=== PATIENT | male | born 1990 | race Caucasian/White ===

== ENCOUNTER 2019-12-16 12:01 | Inpatient (IN) | payer MEDICAID, OTHER ==
[2019-12-16] VITALS (9 sets, daily range): BP systolic 105–128; BP diastolic 62–86
[~2019-12-16] VITALS: Ht 182.9 cm; Wt 77.1 kg
[2019-12-16] MEDS ORDERED: ONDANSETRON 4 MG/2 ML VIAL ONE (12:14)
[2019-12-16] MEDS ORDERED: NALOXONE HCL 0.4 MG/ML AMPUL IV ONE (12:15)
[2019-12-16] MEDS ORDERED: NALOXONE HCL 0.4 MG/ML AMPUL IM ONE (12:15)
[2019-12-16] MEDS ORDERED: ONDANSETRON 4 MG/2 ML VIAL IV ONE (12:15)
--- NOTE | 2019-12-16 12:16 | NUR ---
PT IS IN ROOM #1A. DR NARAYANNA EVALUATED THE PT. PT OVERDOSED WITH FENTANYL , NONRESPONSIVE, IN RESPIRATORY DISTRESS. DR NARAYANAN CALLED CODE BLUE AND PREPARE PT FOR INTUBATION. AFTER ADMINISTERING NARCAN PT WOKE UP AND STARTED BREATHING ON HIS OWN , FULLY AWAKE AND MOVES WITH ALL FOUR EXTREMITIES WITHOUT LIMITATIONS.
--- NOTE | 2019-12-16 12:23 | NUR ---
[facility] CANCELED BY DR NARAYANAN.
[2019-12-16 12:29] LABS: BASOPHILS # (AUTO) 0.1 K/uL (0.0-8.0); BASOPHILS % (AUTO) 0.5 % (0.0-2.0); EOSINOPHILS % (AUTO) 0.4 % (0.0-7.0); HEMATOCRIT 45.6 % (36.7-47.1); HEMOGLOBIN 15.1 g/dL (12.5-16.3); LYMPHOCYTES # (AUTO) 2.1 K/uL (20.0-40.0); LYMPHOCYTES % (AUTO) 15.7 % (20.5-51.5); MEAN CORPUSCULAR HEMOGLOBIN 29.1 uug (23.8-33.4); MEAN CORPUSCULAR HGB CONC 33 g/dL (32.5-36.3); MEAN CORPUSCULAR VOLUME 88.1 fL (73.0-96.2); MONOCYTES # (AUTO) 1.6 K/uL (2.0-10.0); MONOCYTES % (AUTO) 11.4 % (0.0-11.0); NEUTROPHILS # (AUTO) 9.8 K/uL (1.8-8.9); PLATELET COUNT (AUTO) 276 K/uL (152-348); RED BLOOD CELL COUNT(AUTO) 5.18 MIL/uL (4.06-5.63); WHITE BLOOD COUNT (AUTO) 13.6 K/uL (3.6-10.2)
[2019-12-16] MEDS ORDERED: TRAZ-257 PO (12:29)
[2019-12-16] MEDS ORDERED: LISI1TAB32 PO (12:29)
[2019-12-16] MEDS ORDERED: PRAZ5CAP2 PO (12:29)
[2019-12-16] MEDS ORDERED: GABA600T12 PO (12:29)
[2019-12-16] MEDS ORDERED: MULT1CAP44 PO (12:29)
[2019-12-16] MEDS ORDERED: HYDR-501 PO (12:29)
[2019-12-16] MEDS ORDERED: SERT100T PO (12:29)
--- NOTE | 2019-12-16 12:36 | NUR ---
PT IS RESTING IN BED. NO S/S OF ACUTE DISTRESS AT THIS TIME. CONTINUE TO MONITOR THE PT.
[2019-12-16 12:41] LABS: CARBON DIOXIDE 28 mmol/L (21-32); CHLORIDE 91 mmol/L (98-107); GLUCOSE 207 mg/dL (74-106); POTASSIUM 3.4 mmol/L (3.5-5.1); UREA NITROGEN, BLOOD 23 mg/dL (7-18)
[2019-12-16 12:47] LABS: ALANINE AMINOTRANSFERASE 61 U/L (16-63); ALKALINE PHOSPHATASE 74 U/L (50-136); ASPARTATE AMINOTRANSFERASE 73 U/L (15-37); BILIRUBIN,DIRECT 0.4 mg/dL (0.0-0.2); BILIRUBIN,TOTAL 2.3 mg/dL (0.2-1.0); TOTAL PROTEIN, SERUM 7.4 g/dL (6.4-8.2)
[2019-12-16 12:57] LABS: ETHANOL < 3 MG/DL (0-0)
[2019-12-16] MEDS ORDERED: levoFLOXacin 750MG/D5W 150 ML IV ONE (13:12)
[2019-12-16 13:16] LABS: ABG BASE EXCESS -1.2 mmol/L; ABG HCO3 26.1 mmol/L; ABG PCO2 53.1 mmHg (35.0-45.0); ABG PH 7.309 (7.350-7.450); ABG PO2 87.5 mmHg (75.0-100.0); ABG SITE RIGHT RADIAL; COHb 2.6 % (0.5-1.5); MetHb 0.3 % (0.0-1.5); O2Hb 94.1 % (94.0-97.0); VENT MODE Nasal Cannula
[2019-12-16] MEDS: levoFLOXacin 750MG/D5W 150 ML IV ONE ×2 (13:20→13:22)
[2019-12-16] MEDS ORDERED: IV 1/2NS 1000 ML 1,000 ML IV PRN (14:44)
[2019-12-16] MEDS ORDERED: Z GUARD REMEDY PASTE 57 GM TUBE TOP PRN (14:45)
[2019-12-16] MEDS ORDERED: ONDANSETRON 4 MG/2 ML VIAL IV PRN (14:45)
[2019-12-16] MEDS ORDERED: ACETAMINOPHEN 325 MG TABLET PO PRN (14:45)
[2019-12-16] MEDS ORDERED: MAGNESIUM HYDROXIDE 30 ML LIQUID UDC PO PRN (14:45)
[2019-12-16] MEDS ORDERED: NALOXONE HCL 0.4 MG/ML AMPUL IV PRN (14:45)
[2019-12-16] MEDS ORDERED: PIPERACILLIN SODIUM/TAZOBACTAM 4.5 G in IV DEXTROSE 5% 50 ML IV ONE (15:00)
--- NOTE | 2019-12-16 15:23 | NUR ---
REPORT WAS GIVEN TO DAVONTE YEPEZ. PT WAS TRANSFERED TO CCU ROOM # 4.
[2019-12-16] MEDS: POTASSIUM CHLORIDE 50 ML IV SCH ×4 (15:28→18:27)
[2019-12-16] MEDS: ENOXAPARIN SODIUM 40 MG/0.4 ML DISP.SYRIN SQ SCH (15:29)
[2019-12-16] MEDS: IV NS 1000 ML 1,000 ML IV PRN (15:48)
[2019-12-16] MEDS ORDERED: VANCOMYCIN IV 1,500 MG in IV DEXTROSE 5% 500 ML IV ONE (16:00)
--- NOTE | 2019-12-16 19:30 | NUR ---
Report received. Patient admitted today DX:acute respiratory failure, PNA. Sleeping but easily arouses to name. Oriented, but gets agitated with questions. Keeps on removing O2 cannula and desaturates. Advised appropriately. Assessment done. Addendum: 12/16/19 at 2159 by CAMMIE EL RN Amended: Links added. Addendum: 12/16/19 at 2159 by CAMMIE EL RN Amended: Links added.
--- NOTE | 2019-12-16 21:00 | NUR ---
Attempted to use the urinal but not able to void. Advised to try again later. Repeat Troponin drawn by cath lab technologist.
[2019-12-16] MEDS: PIPERACILLIN/TAZOBACTAM/D5W 3.375 G in IV DEXTROSE 5% 100 ML IV SCH (21:20)
[2019-12-16] MEDS ORDERED: PIPERACILLIN/TAZOBACTAM/D5W 3.375 G in IV DEXTROSE 5% 100 ML IV SCH (22:00)
[2019-12-16] MEDS: VANCOMYCIN IV 1,250 MG in IV DEXTROSE 5% 250 ML IV SCH (23:40)
[2019-12-17] VITALS (15 sets, daily range): BP systolic 103–146; BP diastolic 57–89
[2019-12-17] MEDS: IV NS 1000 ML 1,000 ML IV PRN (00:09)
--- NOTE | 2019-12-17 00:15 | NUR ---
Encouraged to void; asking for some water to drink. Took sips of water without problems. Voided humberto urine; specimen sent to lab for drug screen.
[2019-12-17 01:00] LABS: *AMPHETAMINE, URINE POSITIVE (NEGATIVE); *BARBITURATE, URINE NEGATIVE (NEGATIVE); *CANNABINOID, URINE POSITIVE (NEGATIVE); *COCCAINE, URINE POSITIVE (NEGATIVE); *OPIATE, URINE NEGATIVE (NEGATIVE); *PHENCYCLIDINE SCREEN,URINE NEGATIVE (NEGATIVE)
[2019-12-17] MEDS: PIPERACILLIN/TAZOBACTAM/D5W 3.375 G in IV DEXTROSE 5% 100 ML IV SCH ×3 (05:05→22:10)
[2019-12-17 05:11] LABS: BASOPHILS # (AUTO) 0.1 K/uL (0.0-8.0); BASOPHILS % (AUTO) 0.5 % (0.0-2.0); EOSINOPHILS # (AUTO) 0.1 K/uL (0.0-0.7); EOSINOPHILS % (AUTO) 0.6 % (0.0-7.0); HEMOGLOBIN 13.9 g/dL (12.5-16.3); LYMPHOCYTES # (AUTO) 1.4 K/uL (20.0-40.0); LYMPHOCYTES % (AUTO) 13.7 % (20.5-51.5); MEAN CORPUSCULAR HEMOGLOBIN 30.3 uug (23.8-33.4); MEAN CORPUSCULAR HGB CONC 35 g/dL (32.5-36.3); MEAN CORPUSCULAR VOLUME 87.2 fL (73.0-96.2); MONOCYTES # (AUTO) 1.1 K/uL (2.0-10.0); MONOCYTES % (AUTO) 10.3 % (0.0-11.0); NEUTROPHILS # (AUTO) 7.9 K/uL (1.8-8.9); NEUTROPHILS % (AUTO) 74.9 % (38.5-71.5); PLATELET COUNT (AUTO) 214 K/uL (152-348); RED BLOOD CELL COUNT(AUTO) 4.59 MIL/uL (4.06-5.63); WHITE BLOOD COUNT (AUTO) 10.5 K/uL (3.6-10.2)
[2019-12-17 05:24] LABS: BILIRUBIN,TOTAL 2.1 mg/dL (0.2-1.0); MAGNESIUM 1.9 mg/dL (1.8-2.4); PHOSPHOROUS 2.7 mg/dL (2.5-4.9); TOTAL PROTEIN, SERUM 6.5 g/dL (6.4-8.2)
--- NOTE | 2019-12-17 06:58 | NUR ---
O2 saturations 94% and above on 5L NC O2. Slept well during the night. Easily arouses to name. BP stable. Addendum: 12/17/19 at 0659 by CAMMIE EL RN Amended: Links added.
[2019-12-17] MEDS: VANCOMYCIN IV 1,250 MG in IV DEXTROSE 5% 250 ML IV SCH ×2 (08:19→17:13)
[2019-12-17] MEDS: ENOXAPARIN SODIUM 40 MG/0.4 ML DISP.SYRIN SQ SCH (09:00)
--- NOTE | 2019-12-17 12:00 | NUR ---
Transferred patient via wheelchair to [facility]. Report given to Janene ARAUZ. No acute distress noted during transfer. Patient transferred to room 330.
--- NOTE | 2019-12-17 12:15 | NUR ---
Pt arrived on unit via wheelchair and assisted into bed. Report received from Justyna CCU RN. No acute distress, no SOB, denies pain at this time. Pt requests to rest. AAOx4. VSS. NC removed Pt sating 95% and above on room air. All comfort and safety measures implemented. Lunch and breakfast tray at bedside. Call light within reach. Will continue to monitor.
[2019-12-17] MEDS ORDERED: NALOXONE HCL 0.4 MG/ML AMPUL IV ONE (17:25)
--- NOTE | 2019-12-17 20:00 | NUR ---
Received patient resting in bed, easily to arouse. A/Ox4. No signs of acute distress noted. No complaints of pain or SOB. Patient stated he was "feeling okay, just tired" Vitals WNL. IVF running on the left forearm, no s/s of infection or infiltration noted. Heplock on the right forearm is intact and patent. Safety measures initiated. Bed is low and locked, call light within reach. Will continue to monitor.
[2019-12-18] MEDS: VANCOMYCIN IV 1,250 MG in IV DEXTROSE 5% 250 ML IV SCH (00:08)
[2019-12-18] MEDS: IV NS 1000 ML 1,000 ML IV PRN (03:10)
[2019-12-18 04:00] VITALS: BP 131/74
[2019-12-18] MEDS: PIPERACILLIN/TAZOBACTAM/D5W 3.375 G in IV DEXTROSE 5% 100 ML IV SCH (06:21)
--- NOTE | 2019-12-18 08:53 | NUR ---
PATIENT WANTS TO GO AMA, ENCOURAGED TO UNTIL MEDICALLY CLEARED. CALLED RU[facility] FROM [facility] AND THERE NO PLACE TO PUT YET AND SHE STILL LOOKING. EXPLAINED TO PATIENT WHY NOT WAIT UNTIL MEDICALLY CLEARED AND HE WILL BE PLACE TO [facility], BUT PATIENT REFUSED SAID I HAVE MY RIDE COMING, AND I'M GOING TO CATCH FLIGHT TO GO TO [place]. NOTIFY DR. JOSH CRAMER.
--- NOTE | 2019-12-18 08:55 | NUR ---
PATIENT LEFT AMA TOOK ALL BELONGINGS.
--- NOTE | 2019-12-18 08:57 | NUR ---
PATIENT TOOK ALL HOME MEDICATIONS WITH HIM, AND ALL HIS BELONGINGS.
== END 2019-12-18 08:40 | disposition left against medical advice (07) | DRG 917 ==
LOC: ER 12:01 → EDBD 12:01 → CCU 14:30 → TELE3 12-17 12:15 → MEDSURG3 12-17 13:03
PROVIDERS: ADMIT Internal Medicine; ATTEND Internal Medicine
DX: T40.2X1A Poisoning by other opioids, accidental (unintentional), initial encounter (principal); J96.02 Acute respiratory failure with hypercapnia; G92 Toxic encephalopathy; J69.0 Pneumonitis due to inhalation of food and vomit; J96.01 Acute respiratory failure with hypoxia; K83.1 Obstruction of bile duct; E87.1 Hypo-osmolality and hyponatremia; E87.6 Hypokalemia; Y92.009 Unspecified place in unspecified non-institutional (private) residence as the place of occurrence of the external cause
CPT/HCPCS: 36415; 36600; 70030-TC; 71045; 80307; 83605; 83735; 84100; 85025; 87040; 93005; A4663; G0378; G0480; J1650; J1956; J2310; J2405; J2543; J3370; J3480; J7030; J7050; J7060